=== PATIENT | male | born 1965 | race Caucasian/White ===

== ENCOUNTER 2017-04-30 20:36 | Emergency (ER) | payer OTHER ==
[2017-05-01] LABS: URINE BLOOD (Dip) POC Negative (NEGATIVE); URINE GLUCOSE (Dip) POC Negative (NEGATIVE); URINE KETONES (Dip) POC Negative (NEGATIVE); URINE LEUKOCYTE EST (Dip) POC Negative (NEGATIVE); URINE NITRITE (Dip) POC Negative (NEGATIVE); URINE TOTAL PROTEIN POC Negative (NEGATIVE)
[2017-05-01] LABS: URINE PH (Dip) POC 5.5 (5.0-8.5)
[2017-05-01 00:45] LABS: ADD MAN DIFF? NO
[2017-05-01 00:47] LABS: BASOPHILS % 0.5 % (0.0-2.0); EOSINOPHILS # 0.2 10^3/ul (0.0-0.5); EOSINOPHILS % 2.8 % (0.0-7.0); HEMOGLOBIN 14.8 g/dl (14.0-18.0); LYMPHOCYTES # 3.6 10^3/ul (0.8-2.9); LYMPHOCYTES % 45.9 % (15.0-51.0); MEAN CORPUSCULAR HEMOGLOBIN 34.3 pg (29.0-33.0); MEAN CORPUSCULAR HGB CONC 34.4 g/dl (32.0-37.0); MEAN CORPUSCULAR VOLUME 99.8 fl (82.0-101.0); MEAN PLATELET VOLUME 9.1 fl (7.4-10.4); MONOCYTE # 0.8 10^3/ul (0.3-0.9); MONOCYTES % 10.4 % (0.0-11.0); NEUTROPHIL # 3.2 10^3/ul (1.6-7.5); NEUTROPHILS % 40.3 % (39.0-77.0); PLATELET COUNT 247 10^3/UL (140-415); RED BLOOD COUNT 4.31 10^6/ul (4.70-6.10); RED CELL DISTRIBUTION WIDTH 12.7 % (11.5-14.5)
[2017-05-01 00:47] LABS: WHITE BLOOD COUNT 7.9 10^3/ul (4.8-10.8)
[2017-05-01] MEDS: KETOROLAC 30 MG INJ IV (00:57)
[2017-05-01 01:06] LABS: ALANINE AMINOTRANSFERASE 24 IU/L (13-69); ALBUMIN 4.1 g/dl (3.3-4.9); ALBUMIN/GLOBULIN RATIO 0.93; ALKALINE PHOSPHATASE 85 IU/L (42-121); ANION GAP 14 (8-16); ASPARTATE AMINO TRANSFERASE 23 IU/L (15-46); BLOOD UREA NITROGEN 14 mg/dl (7-20); CALCIUM 9.1 mg/dl (8.4-10.2); CARBON DIOXIDE 23 mmol/L (21-31); CHLORIDE 108 mmol/L (97-110); CREATININE 1.29 mg/dl (0.61-1.24); GLUCOSE 108 mg/dl (70-220); LIPASE 202 U/L (23-300); POTASSIUM 3.9 mmol/L (3.5-5.1); SODIUM 141 mmol/L (135-144); TOTAL PROTEIN 8.5 g/dl (6.1-8.1)
== END 2017-05-01 02:14 | disposition home or self-care (01) ==
LOC: E/R 20:36
DX: N28.9 Disorder of kidney and ureter, unspecified (principal); N28.1 Cyst of kidney, acquired; R40.2252 Coma scale, best verbal response, oriented, at arrival to emergency department; R40.2142 Coma scale, eyes open, spontaneous, at arrival to emergency department; R40.2362 Coma scale, best motor response, obeys commands, at arrival to emergency department; Z79.82 Long term (current) use of aspirin
CPT/HCPCS: 36415; 74176; 80053; 81003; 83690; 85025; 96374; 99285-25

== ENCOUNTER 2017-06-22 08:14 | Emergency (ER) | payer OTHER ==
[2017-06-22] MEDS: EPINEPHrine 1 MG INJ IM (08:52)
[2017-06-22] MEDS: METHYLPREDNISOLONE 125 MG INJ IV (08:52)
[2017-06-22] MEDS: FAMOTIDINE 20 MG INJ IV (08:52)
[2017-06-22] MEDS: DIPHENHYDRAMINE 50 MG INJ IV (08:52)
[2017-06-22] MEDS: SOD CHLORIDE 0.9% 1,000 ML IV (09:03)
== END 2017-06-22 10:43 | disposition home or self-care (01) ==
LOC: E/R 08:14
DX: T78.3XXA Angioneurotic edema, initial encounter (principal)
CPT/HCPCS: 71045; 96372; 96374; 96375; 99284-25

== ENCOUNTER 2018-09-27 08:40 | Emergency (ER) | payer OTHER ==
[2018-09-27] MEDS ORDERED: HEPATITIS B VACCINE 5 MCG/0.5 ML VIAL/SYG (VFC) IM* (09:30)
[2018-09-27] MEDS: HEPATITIS B VACCINE 10 MCG/0.5 ML SYG (NON-VFC) IM* (10:07)
[2018-09-27 10:54] LABS: HEPATITIS B SURFACE ANTIGEN NEGATIVE (NEGATIVE)
[2018-09-27 11:10] LABS: HEPATITIS C VIRAL ANTIBODY NEGATIVE (NEGATIVE); HIV 1&2 ANTIBODY NEGATIVE (NEGATIVE)
[2018-09-27 11:11] LABS: HEPATITIS B SURFACE ANTIBODY NEGATIVE (NEGATIVE)
== END 2018-09-27 10:36 | disposition home or self-care (01) ==
LOC: FTE 08:40
DX: S61.237A Puncture wound without foreign body of left little finger without damage to nail, initial encounter (principal); K60.3 Anal fistula; W46.0XXA Contact with hypodermic needle, initial encounter; Y92.9 Unspecified place or not applicable
CPT/HCPCS: 86703; 86706; 86803; 87340; 96372; 99284-25

== ENCOUNTER 2018-11-14 08:15 | Emergency (ER) | payer OTHER | END 2018-11-14 10:46 | disposition home or self-care (01) | LOC: E/R 08:15 | DX: Z11.4 Encounter for screening for human immunodeficiency virus [HIV] (principal); F17.210 Nicotine dependence, cigarettes, uncomplicated | CPT/HCPCS: 86703; 99283 ==